=== PATIENT | female | born 1955 | race Asian ===

== ENCOUNTER 2019-06-19 17:37 | Inpatient (IN) | payer MEDICAID ==
[~2019-06-19] VITALS: Ht 167.6 cm; Wt 57.7 kg
[2019-06-19 17:42] VITALS: BP_SYST 133
--- NOTE | 2019-06-19 17:42 | NUR ---
Patient to ER bed 5 to gown for evaluation. Side rails up. Report given to Whitney GODDARD.
--- NOTE | 2019-06-19 17:45 | NUR ---
PATIENT CAME IN COMPLAINING OF LOWER BACK PAIN FROM FALL YESTERDAY. PATIENT FELL ON BUTT. PATIENT STATES PAIN GETTING PROGRESSIVLY WORST TODAY AND NOW CANT REALLY MOVE. PATIENT COMPLAINING OF 1/10 PAIN WHEN NOT MOVING OR BEING TOUCHED. PATIENT STATES IT RADIATES TO BUTT AND RIGHT SIDE WORST THEN LEFT. PATIENT DENIES SOB. PATIENT ALERT AND ORIENTED.
--- NOTE | 2019-06-19 17:45 | NUR ---
ER Dr. Cooney at bedside examining patient.
[2019-06-19] MEDS ORDERED: MORPHINE 2 MG/ML INJ. SYRINGE IVP ONE (18:00)
[2019-06-19] MEDS ORDERED: ONDANSETRON HCL 4 MG/2 ML VIAL IVP ONE (18:00)
[2019-06-19 18:23] LABS: BASOPHILS % (AUTO) 0.4 % (0.0-2.0); EOSINOPHILS % (AUTO) 0.5 % (0.0-4.0); HEMATOCRIT 37.5 % (36-48); HEMOGLOBIN 12.3 g/dL (12.0-16.0); LYMPHOCYTES # (AUTO) 0.7 K/uL (1.0-5.5); LYMPHOCYTES % (AUTO) 15.7 % (20.5-51.5); MEAN CORPUSCULAR HEMOGLOBIN 31 pg (27-31); MEAN CORPUSCULAR HGB CONC 33 % (32-36); MEAN CORPUSCULAR VOLUME 94 fL (79.0-98.0); MONOCYTES # (AUTO) 0.3 K/uL (0.0-1.0); MONOCYTES % (AUTO) 6.9 % (1.7-9.3); NEUTROPHILS # (AUTO) 3.6 K/uL (1.8-7.7); NEUTROPHILS % (AUTO) 76.5 % (40.0-70.0); PLATELET COUNT (AUTO) 154 K/uL (130-430); RED BLOOD CELL COUNT(AUTO) 3.98 MIL/uL (4.2-6.2); RED CELL DISTRIBUTION WIDTH 13.8 % (9.0-15.0); WHITE BLOOD COUNT (AUTO) 4.7 K/uL (4.8-10.8)
--- NOTE | 2019-06-19 18:24 | NUR ---
PATIENT LEFT TO CT VIA GURNEY IN STABLE CONDITION.
[2019-06-19 18:33] LABS: CALCIUM 8.5 mg/dL (8.4-11.0); CREATININE 1.04 mg/dL (0.55-1.30)
--- NOTE | 2019-06-19 18:35 | NUR ---
PATIENT BACK FROM CT IN STABLE CONDITION.
[2019-06-19 18:37] LABS: ALBUMIN 3.4 g/dL (3.4-4.8); TOTAL BILIRUBIN 1.9 mg/dL (0.0-1.0)
[2019-06-19 18:40] LABS: POTASSIUM 2.8 mmol/L (3.5-5.1)
[2019-06-19] MEDS ORDERED: POTASSIUM CHLORIDE 20 MEQ/PKT PACKET PO ONE (18:45)
--- NOTE | 2019-06-19 19:05 | NUR ---
ENDORSED CARE TO RUPESH MIN.
--- NOTE | 2019-06-19 19:07 | NUR ---
Received report from RUPESH Painter. All care endorsed.
[2019-06-19] MEDS ORDERED: ATOR10TA68 PO (20:07)
--- NOTE | 2019-06-19 20:07 | NUR ---
Medication reconciliation completed with information provided by daughter at [facility]. Per patient, pt filled PRN pain medication but is unsure of what it is.
--- NOTE | 2019-06-19 20:15 | NUR ---
ER Dr. Carcamo at bedside explaining results to patient/family.
[2019-06-19 21:43] LABS: BILIRUBIN,URINE NEGATIVE (NEGATIVE); CLARITY/URINE CLEAR (CLEAR); COLOR,URINE YELLOW (YELLOW); GLUCOSE,URINE NEGATIVE (NEGATIVE); KETONES,URINE NEGATIVE (NEGATIVE); LEUKOCYTE ESTERASE ,URINE NEGATIVE (NEGATIVE); NITRITE, URINE NEGATIVE (NEGATIVE); PH,URINE 5.5 (5.0-8.0); PROTEIN URINE NEGATIVE (NEGATIVE)
[2019-06-19] MEDS ORDERED: NACL 0.9% 1,000 ML IV ONE (21:45)
[2019-06-19 21:59] LABS: BLOOD, URINE TRACE (NEGATIVE)
[2019-06-19 22:05] LABS: BACTERIA,URINE FEW /HPF (None Seen); RBC,URINE 0-3 /HPF (0-3)
[2019-06-19 22:06] LABS: MUCUS,URINE 1+ /LPF (None Seen)
[2019-06-19] MEDS ORDERED: MORPHINE 2 MG/ML INJ. SYRINGE IVP PRN (23:15)
--- NOTE | 2019-06-19 23:41 | NUR ---
Patient will be admitted to care of Dr. Causey. Admitted to Med Surg unit. Will go to room 123 A. Belongings list completed. Summary report printed. Report will be given at bedside.
--- NOTE | 2019-06-19 23:42 | NUR ---
Transfer to [facility]. IV present no sign or symptom of infiltration.
--- NOTE | 2019-06-19 23:52 | NUR ---
ADMISSION: The patient, KENNETH STUBBS, 63 y/o, F admitted by MAAME DUARTE MD,with the diagnosis of BACK PAIN , to room 79924 A ,was given written information regarding hospital policies, unit procedures and contact persons.
[2019-06-20 00:09] VITALS: BP_SYST 128
--- NOTE | 2019-06-20 00:30 | NUR ---
COMMUNICATION: PT IS MANDARIN SPEAKING , UNABLE TO COMMUNICATE WITH THE PT , NO INTERPRETERS AVAILABLE AT THE HOSPITAL AT THIS TIME ,USED BLUE PHONE , CALLED AND TALKED WITH BENCH ASSEMBLER OPERATOR ID [id number] MORIS , HE ASSISTED WITH TRANSLATING AND ABLE TO COMPLETE ADMISSION DATA . ALSO PRIMARY RN WAS ABLE TO TALK WITH THE SAME PERSON AFTER Juni TALKED .
--- NOTE | 2019-06-20 00:41 | NUR ---
ROUNDS Admission physical assessment was done with the assistance of an cashier assistant named Lyndon via blue phone, ID number is [id number]. Pt only speaks mandarin. No complains of pain at this time. No signs of acute distress or SOB noted. Encouraged to use call light when needed. Safety precautions in place with 3 side rails up, wheels locked, bed alarm on and in lowest level. Call light with pt. Will continue to monitor.
--- NOTE | 2019-06-20 02:54 | NUR ---
ROUNDS Pt is resting in bed with both eyes closed, with visible chest rise and fall with non-labored breathing noted. No complains of pain and no signs of acute distress noted. Safety precautions in place and call light with pt. Will continue to monitor.
[2019-06-20 06:03] VITALS: BP_SYST 127
[2019-06-20] MEDS: MORPHINE 4 MG/ML INJ. SYRINGE IVP PRN ×2 (06:05→19:02)
--- NOTE | 2019-06-20 06:05 | NUR ---
PAIN MED Pt keeps turning and moving in bed, moaning and grimacing as well. Asked pt if where the pain is and she pointed and massaging her back. FLACC scale of 6/10. Vital signs taken and recorded. Morphine 4mg IVP given as ordered. No signs of acute distress noted. Safety precautions in place and call light with pt. Will continue to monitor.
--- NOTE | 2019-06-20 07:00 | NUR ---
OPENING NOTES: PATIENT IS AWAKE LAYING DOWN IN BED. NO SIGNS OF DISTRESS OR SHORTNESS OF BREATH NOTED. IV SITE IS PATENT WITH NO SIGNS OF INFILTRATION. PATIENT DENIES ANY PAIN AT THE MOMENT. SAFETY AND FALL PRECAUTIONS ARE IN PLACE. BED LOCKED IN LOWEST POSITION WITH CALL LIGHT IN REACH. WILL CONTINUE TO MONITOR PATIENT FOR ANY CHANGES. Addendum: 06/20/19 at 1302 by Soco Aguiar RN PT IS AAOX4, VERBAL BUT SAMI SPEAKING ONLY.
--- NOTE | 2019-06-20 07:01 | NUR ---
CLOSING NOTES Pt is resting in bed with both eyes closed, with visible chest rise and fall with non-labored breathing noted. No complains of pain at this time. No signs of acute distress or SOB noted. All needs attended throughout the shift. Safety precautions maintained with 3 side rails up, wheels locked, bed alarm on and in lowest level. Call light with pt. Will endorse to day shift nurse.
[2019-06-20 08:00] VITALS: BP_SYST 121
[2019-06-20] MEDS: ONDANSETRON HCL 4 MG/2 ML VIAL IVP PRN (08:55)
--- NOTE | 2019-06-20 09:25 | NUR ---
MEDICATION REASSESSMENT: PATIENT WAS FEELING NAUSEOUS. PATIENT GIVEN PRN ZOFRAN FOR NAUSEA. RECHECKED PATIENT AND SHE IS NO LONGER FEELING NAUSEOUS. PATIENT RESTING PEACEFULLY.
--- NOTE | 2019-06-20 10:02 | NUR ---
Nutrition Update Elliott Scale 18 noted. Pt admitted for back pain. Diet: regular BMI: 20.5 kg/m2 RD to follow per nutrition care standards.
--- NOTE | 2019-06-20 10:10 | NUR ---
RN ROUNDS: PATIENT IS LAYING DOWN IN BED RESTING HER EYES. NO SIGNS OF DISTRESS OR SHORTNESS OF BREATH NOTED. IV SITE IS PATENT WITH NO SIGNS OF INFILTRATION. SAFETY AND FALL PRECAUTIONS ARE IN PLACE. BED LOCKED IN LOWEST POSITION WITH CALL LIGHT IN REACH. WILL CONTINUE TO MONITOR PATIENT FOR ANY CHANGES.
[2019-06-20 11:22] VITALS: BP_SYST 101
--- NOTE | 2019-06-20 11:36 | NUR ---
CONSULTATION PAGED/CALLED Reason for Consultation: SYNCOPE Person Who was Notified: SPOKE TO LATHA from office. Consulting Physician: Banking Services Officer Specialty: CARDIO Ordering Physician:
[2019-06-20 12:38] LABS: CALCIUM 8.8 mg/dL (8.4-11.0); CREATININE 1.04 mg/dL (0.55-1.30); POTASSIUM 3.7 mmol/L (3.5-5.1)
--- NOTE | 2019-06-20 12:39 | NUR ---
Physical Therapy order has been received and the chart reviewed. Nurse gave medical clearance to evaluate the patient. [employer] media marketing manager service for Tello Morgan media marketing manager Inez [phone] communicated with the patient. Patient requested to defer the evaluation today because she is in too much pain and weakness to attempt out of bed activities. RN was informed. Plan: attempt the evaluation tomorrow.
--- NOTE | 2019-06-20 12:44 | NUR ---
RN ROUNDS: PATIENT IS AWAKE SITTING UP IN BED. PATIENT IS FEELING NAUSEOUS AND VOMITED 200cc OF YELLOW BILE WITH WHITE CHUNKS. ASSISTED PATIENT IN DISPOSING OF THE EMESIS. PATIENT STATED SHE WAS OKAY NOW AFTER VOMITING. PATIENT DENIES ANY PAIN AT THE MOMENT. IV SITE IS PATENT WITH NO SIGNS OF INFILTRATION. SAFETY AND FALL PRECAUTIONS ARE IN PLACE. BED LOCKED IN LOWEST POSITION WITH CALL LIGHT IN REACH.
--- NOTE | 2019-06-20 12:54 | NUR ---
PROPERTY CLAIMS MANAGER USED THE BLUE PHONE AND SPOKE WITH PROPERTY CLAIMS MANAGER #[id number] TO GET CONSENT FOR MRI WITH OUT CONTRAST. PATIENT AGREED TO HAVE THE MRI AND SIGNED THE CONSENT AND VERBALIZED THAT SHE UNDERSTOOD WHAT SHE WAS GOING TO HAVE DONE.
--- NOTE | 2019-06-20 13:00 | NUR ---
CALL DR GERALD TORRES, AWAITING CALL BACK TO MAKE HIM AWARE THAT PT HAS AN UPSET STOMACH DUE TO DRINKING SPOILED MILK THIS MORNING PER PT, ZOFRAN WAS GIVEN IN AM BUT SHE HAS VOMITED AGAIN AND DOES NOT WANT TO EAT. Addendum: 06/20/19 at 1404 by Soco Aguiar RN DR GERALD MORRIS, AWAITING CALL BACK. Addendum: 06/20/19 at 1741 by Soco Aguiar RN CALLED BACK AND GAVE NO NEW ORDERS FOR PT, MADE AWARE THAT PT HAS NOT BEEN EATING BREAKFAST OR LUNCH.
--- NOTE | 2019-06-20 13:55 | NUR ---
AMBULATION PT AMBULATED WITH ASSIST TO THE RESTROOM, NO PAIN PER PT, NOTED UNSTEADY GAIT, WEAK. PT VOIDED X1 IN THE TOILET. PT TOLERATED.
--- NOTE | 2019-06-20 14:01 | NUR ---
RN ROUNDS: PATIENT IS AWAKE LAYING IN BED. NO DISTRESS OR SHORTNESS OF BREATH NOTED AT THIS MOMENT. PATIENT DENIES ANY PAIN. IV SITE IS PATENT WITH NO SIGNS OF INFILTRATION. SAFETY AND FALL PRECAUTIONS ARE IN PLACE. BED LOCKED IN LOWEST POSITION WITH CALL LIGHT IN REACH. WILL CONTINUE TO MONITOR PATIENT FOR ANY CHANGES.
[2019-06-20 15:26] VITALS: BP_SYST 133
--- NOTE | 2019-06-20 16:06 | NUR ---
RN ROUNDS: PATIENT IS LAYING DOWN IN BED RESTING HER EYES. NO SIGNS OF DISTRESS OR SHORTNESS OF BREATH NOTED. PATIENT DENIES ANY PAIN AT THE MOMENT. IV SITE IS PATENT WITH NO SIGNS OF INFILTRATION. SAFETY AND FALL PRECAUTIONS ARE IN PLACE. BED LOCKED IN LOWEST POSITION WITH CALL LIGHT IN REACH. WILL CONTINUE TO MONITOR PATIENT FOR ANY CHANGES.
--- NOTE | 2019-06-20 18:17 | NUR ---
ROUNDS DR PATEL RAUSCH, AWARE OF PATIENTS CONDITION, NEW ORDERS WRITTEN.
--- NOTE | 2019-06-20 18:26 | NUR ---
CLOSING NOTE PT IN BED, NO S/S OF DISTRESS OR SOB NOTED, PT HAS NO C/O PAIN AT THIS TIME, PT IN STABLE CONDITION, PT RESTING COMFORTABLY, VISITOR AT BEDSIDE, ALL NEEDS MET THROUGHOUT SHIFT. FALL AND SAFETY PRECAUTIONS IN PLACE. BED AT LOWEST POSITION, CALL LIGHT WITHIN REACH, WILL ENDORSE CARE OF PT TO INCOMING NURSE. IV CATHETER PATENT, FLUSHES AND NO SIGNS OF INFECTION OR INFILTRATION, SALINE LOCK.
--- NOTE | 2019-06-20 19:25 | NUR ---
OPENING NOTES Pt and endorsement received from day shift nurse. Pt is AAOx4, only speaks mandarin. Daughter at bedside and is translating conversations with pt. No complains of pain at this time. No signs of acute distress or SOB noted. Encouraged to use call light when needed. Safety precautions in place with 3 side rails up, wheels locked, bed alarm on and in lowest level. Call light with pt. Will continue to monitor.
[2019-06-20 20:35] VITALS: BP_SYST 111
--- NOTE | 2019-06-21 00:49 | NUR ---
ROUNDS Pt is resting in bed with both eyes closed, with visible chest rise and fall with non-labored breathing noted. Pt is easily arousable. No signs of acute distress noted. No needs at this time. Safety precautions in place and call light with pt. Will continue to monitor.
[2019-06-21 01:32] VITALS: BP_SYST 99
--- NOTE | 2019-06-21 03:03 | NUR ---
ROUNDS Pt is resting in bed with both eyes closed, with visible chest rise and fall with non-labored breathing noted. Pt is stable and no signs of acute distress noted. Safety precautions in place and call light with pt. Will continue to monitor.
--- NOTE | 2019-06-21 07:15 | NUR ---
sbar report received at the bedside. patient aaox 4. lungs bilaterally clear. abdomen soft and non distended. no skin breakdown noted. has iv access on the rt hand #20. saline lock. bed in low position, alarmed and locked. call lights within reach. instructed to call for assistance.
[2019-06-21 08:15] VITALS: BP_SYST 133
--- NOTE | 2019-06-21 08:20 | NUR ---
asked Viktor Nguyen RN to interpret in mandarin language. patient explained the pain and other to assists in care.
[2019-06-21] MEDS: MORPHINE 4 MG/ML INJ. SYRINGE IVP PRN (08:26)
[2019-06-21] MEDS: ONDANSETRON HCL 4 MG/2 ML VIAL IVP PRN (08:27)
--- NOTE | 2019-06-21 08:29 | NUR ---
MORPHINE 4 MG IV AND ZOFRAN 4 MG IV GIVEN. MADE COMFORTABLE.
--- NOTE | 2019-06-21 10:00 | NUR ---
NO OTHER DUE MEDICATION AT THIS TIME. PATIENT STABLE NO PAIN NOTED.
--- NOTE | 2019-06-21 11:39 | NUR ---
physical therapy dewey came to do pt on the patient.
[2019-06-21] MEDS: traMADol HCL HCL 50 MG TABLET (ULTRAM) PO SCH ×2 (12:31→19:31)
[2019-06-21 12:50] VITALS: BP_SYST 119
--- NOTE | 2019-06-21 14:00 | NUR ---
renal ultrasound done pending result
--- NOTE | 2019-06-21 15:39 | NUR ---
called dr cornejo for results of the renal ultrasound.
[2019-06-21 15:54] VITALS: BP_SYST 113
[2019-06-21 16:01] VITALS: BP_SYST 113
--- NOTE | 2019-06-21 16:30 | NUR ---
dr cornejo called and said no discharge tonite. informed the renal ultrasound result. will talked to the family tomorrow.
--- NOTE | 2019-06-21 18:09 | NUR ---
daughter came asked for the status of the patient.
--- NOTE | 2019-06-21 18:10 | NUR ---
please follow up for the brace tomorrow.
--- NOTE | 2019-06-21 19:30 | NUR ---
endorsed to Flaca GODDARD
--- NOTE | 2019-06-21 19:53 | NUR ---
OPENING NOTE Received patient awake, resting in bed, no s/sx of distress noted. Non-labored breathing on room air. Bed locked to lowest position, bed alarm on, call light w/in reach.
[2019-06-21 20:00] VITALS: BP_SYST 116
--- NOTE | 2019-06-21 21:50 | NUR ---
Rounds Patient does not have scheduled medication. Presently resting in bed awake, no sign of distress. Will monitor.
--- NOTE | 2019-06-22 00:10 | NUR ---
Rounds Patient is resting w/eyes closed. Non-labored breathing. Call light w/in reach.
[2019-06-22 00:47] VITALS: BP_SYST 132
--- NOTE | 2019-06-22 02:15 | NUR ---
Awake Patient is awake and when asked about pain she indicated pain to her abdomen. She said she wants the pill instead of the IV medication. She has Ultram scheduled Q6hr, which was already due, it will be administered.
[2019-06-22] MEDS: traMADol HCL HCL 50 MG TABLET (ULTRAM) PO SCH ×2 (02:25→06:52)
--- NOTE | 2019-06-22 03:58 | NUR ---
Rounds Patient is resting w/eyes closed. Symmetrical rise and fall of chest, non-labored breathing. Call light w/in reach.
[2019-06-22 05:00] VITALS: BP_SYST 120
--- NOTE | 2019-06-22 05:00 | NUR ---
V/S Vital signs taken and stable, patient denies pain. Patient returned to sleep. Call light w/in reach. Will monitor.
--- NOTE | 2019-06-22 06:57 | NUR ---
CLOSING NOTES Patient is resting, in comfortable position. She was given scheduled Ultram for pain, which she presently indicates is on right side of low back. IV is SL to right hand. Needs met throughout shift, no sign of distress, will endorse to oncoming nurse.
--- NOTE | 2019-06-22 09:52 | NUR ---
PT note Attempted multiple times to have patient participate with therapy; nursing present to translate, patient still refused therapy.
[2019-06-22 10:30] VITALS: BP_SYST 119
--- NOTE | 2019-06-22 10:33 | NUR ---
06/22/2019 1033 This patient is lying in bed. No s/s of distress noted. She is alert and orientedX4, ambulatory. She is Mandarian speaking. Labs reviewed from 06/20 along with urinalysis results. This patient will discharge today and will be told to follow up with urologist in one week. Reassessment of pain was done upon the shift. She denies pain. Vital signs are obtained: 119/70, temp 97.7, 95% oxygen sat, 20 resp, 80 HR.
[2019-06-22 12:06] VITALS: BP_SYST 136
[2019-06-22 12:40] VITALS: BP_SYST 127
--- NOTE | 2019-06-22 14:45 | NUR ---
Spoke to Hiren Melissa phone no. [phone] Causey to buy over the counter ibuprofen 400 mg. q6 hours as needed for pain , to take medication with full stomach talisha Lopez verbalized understanding.
== END 2019-06-22 13:35 | disposition home or self-care (01) | DRG 347 ==
LOC: SED 17:37 → SMU 23:13 → STU 06-20 13:14
PROVIDERS: ADMIT Internal Medicine Hospice and Palliative Medicine; ATTEND Internal Medicine Hospice and Palliative Medicine
DX: S22.089A Unspecified fracture of T11-T12 vertebra, initial encounter for closed fracture (principal); N13.30 Unspecified hydronephrosis; S32.019A Unspecified fracture of first lumbar vertebra, initial encounter for closed fracture; E78.00 Pure hypercholesterolemia, unspecified; I10 Essential (primary) hypertension; N26.1 Atrophy of kidney (terminal); E87.6 Hypokalemia; N39.0 Urinary tract infection, site not specified; E78.5 Hyperlipidemia, unspecified; W01.0XXA Fall on same level from slipping, tripping and stumbling without subsequent striking against object, initial encounter; Z79.899 Other long term (current) drug therapy; Z87.442 Personal history of urinary calculi; Y93.89 Activity, other specified; Y92.89 Other specified places as the place of occurrence of the external cause; Y99.8 Other external cause status
CPT/HCPCS: 36415; 72131; 72148; 76770; 80048; 80053; 81000-TC; 83690-TC; 84484; 85025; 87040-TC; 93005; 93306; 96361; 96374; 96375; 99285; G0378; J2270; J2405; J7030